=== PATIENT | female | born 1995 | race Caucasian/White ===

== ENCOUNTER 2022-08-03 11:59 | Emergency (ER) | payer OTHER ==
[~2022-08-03] VITALS: Ht 167.6 cm; Wt 95.0 kg
[2022-08-03 12:19] VITALS: BP 130/78
[2022-08-03] MEDS ORDERED: ADDERALL XR30 MG PO (12:21)
[2022-08-03 13:00] VITALS: BP 117/84
[2022-08-03 13:20] LABS: URINE BILIRUBIN - DIPSTICK NEGATIVE (NEGATIVE); URINE BLOOD DIPSTICK SMALL (NEGATIVE); URINE CLARITY CLEAR; URINE COLOR YELLOW; URINE GLUCOSE - DIPSTICK NEGATIVE (NEGATIVE); URINE KETONE NEGATIVE (NEGATIVE); URINE LEUK ESTERASE NEGATIVE (Negative); URINE NITRITE - DIPSTICK NEGATIVE (Negative); URINE PH 7.5 (4.5-8.0); URINE PROTEIN - DIPSTICK NEGATIVE (NEG-TRACE); URINE UROBILINOGEN - DIPSTICK 0.2 E.U./dL (0.2)
[2022-08-03 13:30] VITALS: BP 117/80
[2022-08-03 13:37] LABS: URINE BACTERIA FEW hpf; URINE SQUAMOUS EPITHELIAL CELL MODERATE EPI/hpf (0-FEW); URINE WBC 0-2 WBC/hpf (0-5)
[2022-08-03] MEDS ORDERED: NAPROXEN500 MG PO (14:27)
[2022-08-03] MEDS ORDERED: METHOCARBAMOL500 MG PO (14:27)
[2022-08-03 14:30] VITALS: BP 113/71
== END 2022-08-03 14:37 | disposition home or self-care (01) | DRG 563 ==
LOC: ED 11:59
PROVIDERS: Nurse Practitioner
DX: S39.012A Strain of muscle, fascia and tendon of lower back, initial encounter (principal); S16.1XXA Strain of muscle, fascia and tendon at neck level, initial encounter; V43.52XA Car driver injured in collision with other type car in traffic accident, initial encounter